=== PATIENT | male | born 1990 | race Caucasian/White ===

== ENCOUNTER 2020-08-23 10:33 | Emergency (ER) | payer BC | END 2020-08-23 11:51 | disposition home or self-care (01) | LOC: JVIRT 10:33 | DX: Z11.52 Encounter for screening for COVID-19 (principal) | CPT/HCPCS: C9803; G2012-GT; U0003 ==

== ENCOUNTER 2020-08-30 10:36 | Emergency (ER) | payer BC | END 2020-08-30 10:56 | disposition home or self-care (01) | LOC: JVIRT 10:36 | DX: Z11.52 Encounter for screening for COVID-19 (principal) | CPT/HCPCS: G2012-GT ==

== ENCOUNTER 2020-09-01 13:27 | Emergency (ER) | payer BC | END 2020-09-01 14:31 | disposition home or self-care (01) | LOC: JVIRT 13:27 | DX: Z11.52 Encounter for screening for COVID-19 (principal) | CPT/HCPCS: C9803; G2012-GT; U0003 ==

== ENCOUNTER 2020-09-24 10:28 | Emergency (ER) | payer BC | END 2020-09-24 11:20 | disposition home or self-care (01) | LOC: JVIRT 10:28 | DX: Z20.822 Contact with and (suspected) exposure to COVID-19 (principal) | CPT/HCPCS: C9803; G2251-GT; U0003 ==

== ENCOUNTER 2021-03-11 09:40 | Emergency (ER) | payer BC ==
[2021-03-12 15:07] LABS: SARS-CoV-2 NAA Not Detected (Not Detected)
== END 2021-03-11 10:00 | disposition home or self-care (01) ==
LOC: JVIRT 09:40
DX: Z20.822 Contact with and (suspected) exposure to COVID-19 (principal)
CPT/HCPCS: C9803; Q3014-GT; U0003; U0005

== ENCOUNTER 2022-12-07 02:10 | Emergency (ER) | payer OTHER ==
[2022-12-07 02:22] VITALS: BP 113/72; PULSE 90; RESP 17; TEMP 97.6; BMI 28.8
[2022-12-07] MEDS ORDERED: ACETAMINOPHEN 325 MG TABLET (FP) PO ONE (02:34)
[2022-12-07] MEDS ORDERED: IBUPROFEN 400 MG TABLET (FP) PO ONE ×2 (02:34→02:49)
[2022-12-07] MEDS ORDERED: LIDOCAINE 5% TOPICAL PATCH TP ONE (02:34)
[2022-12-07] MEDS ORDERED: LIDOCAINE 5% TOPICAL PATCH ONE (02:49)
[2022-12-07] MEDS ORDERED: ACETAMINOPHEN 325 MG TABLET (FP) ONE (02:49)
[2022-12-07] MEDS ORDERED: LIDOCAINE PATCH REMOVAL MC ONE (15:00)
== END 2022-12-07 03:27 | disposition home or self-care (01) ==
LOC: JER 02:10
DX: M79.641 Pain in right hand (principal)
CPT/HCPCS: 73130-TC-RT-FY; 99284-25

== ENCOUNTER 2024-05-04 08:49 | Emergency (ER) | payer OTHER ==
[2024-05-04 09:19] VITALS: BP 112/73; PULSE 95; RESP 18; TEMP 97; BMI 26.6
[2024-05-04] MEDS ORDERED: KETOROLAC TROMETHAMINE 30 MG/1 ML VIAL ONE (09:39)
[2024-05-04] MEDS ORDERED: LIDOCAINE 4% PATCH TP ONE (09:39)
[2024-05-04] MEDS ORDERED: ACETAMINOPHEN 500 MG TABLET (FP) ONE (09:39)
[2024-05-04] MEDS: LIDOCAINE 4% PATCH TP ONE (09:46)
[2024-05-04] MEDS: KETOROLAC TROMETHAMINE 30 MG/1 ML VIAL IM ONE (09:47)
[2024-05-04] MEDS: ACETAMINOPHEN 500 MG TABLET (FP) PO ONE (09:48)
[2024-05-04] MEDS ORDERED: LIDOCAINE PATCH REMOVAL MC SCH (22:00)
== END 2024-05-04 10:08 | disposition home or self-care (01) ==
LOC: JER 08:49
PROC: 3E0133Z Introduction of Anti-inflammatory into Subcutaneous Tissue, Percutaneous Approach (ICD-10-PCS; principal; 2024-05-04)
DX: M54.42 Lumbago with sciatica, left side (principal)
CPT/HCPCS: 99284-25